=== PATIENT | male | born 1970 | race African-American/Black ===

== ENCOUNTER → 2019-01-13 | Outpatient (CLI) | payer BC ==
--- NOTE | 2019-01-13 13:22 | RAD ---
EXAM: Left hip, 2 views; lumbar spine, 3 views. HISTORY: Pain. Paresthesia. COMPARISON: None. FINDINGS: Lumbar spine: 3 views of the lumbar spine are obtained. There is lumbar hyperlordosis. There is no significant listhesis. There is degenerative endplate remodeling with disc space narrowing and osteophytosis primarily at L5-S1. There is additional anterior predominant spurring at the lower thoracic levels. Left hip: 2 views of the left hip are obtained. There is no fracture, dislocation or subluxation. There is a small bump at the femoral head-neck junction, a finding which can be seen with chronic impingement. There is minimal osteoarthritis. IMPRESSION: 1. Multilevel degenerative change throughout the lower thoracic and lumbar spine, described above. This is primarily at L5-S1. 2. Minimal left hip osteoarthritis. Electronically signed by: Migdalia Cook MD (01/13/2019 1:19 PM) [id number]
== END | disposition home or self-care (01) ==
LOC: RAD 12:20
PROVIDERS: ATTEND Family Medicine
DX: M48.061 Spinal stenosis, lumbar region without neurogenic claudication (principal); M25.78 Osteophyte, vertebrae; M16.12 Unilateral primary osteoarthritis, left hip; M47.814 Spondylosis without myelopathy or radiculopathy, thoracic region; M47.816 Spondylosis without myelopathy or radiculopathy, lumbar region
CPT/HCPCS: 72100; 73502

== ENCOUNTER → 2019-01-19 | Outpatient (CLI) | payer BC ==
--- NOTE | 2019-01-19 13:08 | RAD ---
MRI Lumbar Spine without contrast History: Worsening left leg radiculopathy Technique: Multiplanar, multi sequential noncontrast MR imaging was performed of the lumbar spine. Comparison: None Findings: There is some motion degradation. Lumbar vertebral body stature and AP alignment are maintained. There is moderate to severe L5-S1 degenerative disc disease, minimally at L3-4. Conus terminates at L1. There is no significant edema of the vertebral bodies. There is some nonspecific edema of the right L4 and L5 pedicles extending to the facet articular processes more likely to be reactive/degenerative in etiology. L1-2, L2-3: These levels were not included on the axial images. Neural foramina and spinal canal are adequate. L3-L4: There is mild buckling of the ligamentum flavum and facet degenerative change. Spinal canal and neural foramina are adequate. L4-L5: There is mild buckling of the ligamentum flavum and right facet hypertrophic change. Spinal canal and the neural foramina are adequate. L5-S1: There is minimal disc osteophyte complex, mild indentation upon the ventral thecal sac greater in the far lateral recess, near the descending left S1 nerve root without significant displacement. There is mild bilateral facet hypertrophic change. There is moderate to severe left greater than right neural foramina compromise with degree of contact of the exiting L5 nerve roots bilaterally, inferior narrowing by disc osteophyte complex and posterior narrowing by facets. Impression: 1. There is moderate to severe left greater than right L5-S1 neural foramina compromise, contact of the exiting L5 nerve roots bilaterally. There is moderate to severe L5-S1 degenerative disc disease, mild spondylosis. There is no significant lumbar spinal stenosis, minimal disc osteophyte complex at L5-S1 near the descending left S1 nerve root in the left lateral recess. Electronically signed by: Andreas Chung MD (01/19/2019 1:05 PM) [id number]
== END | disposition home or self-care (01) ==
LOC: MRI 10:37
PROVIDERS: ATTEND Family Medicine
DX: M51.37 Other intervertebral disc degeneration, lumbosacral region (principal); M47.817 Spondylosis without myelopathy or radiculopathy, lumbosacral region; M25.78 Osteophyte, vertebrae
CPT/HCPCS: 72148